=== PATIENT | male | born 1935 | race Caucasian/White ===

== ENCOUNTER 2019-09-27 06:40 | Emergency (ER) | payer MEDICARE, BC ==
[~2019-09-27] VITALS: Ht 167.6 cm; Wt 77.1 kg
[2019-09-27] MEDS ORDERED: LOSA25TA3 PO (06:52)
[2019-09-27] MEDS ORDERED: [UNRECOGNIZED DRUG - REMARK] (06:52)
--- NOTE | 2019-09-27 07:00 | NUR ---
Patient walked into ER c/o SBP of 178 at 0500 today. Patient called his PMD and was instructed to take 25mg of Cozaar. Alfonzoies SOB, N/V and CP.
[2019-09-27] MEDS ORDERED: ROSU40TA PO (07:01)
[2019-09-27] MEDS ORDERED: MULT-1201 PO (07:01)
[2019-09-27] MEDS ORDERED: CARV10CP PO (07:01)
[2019-09-27] MEDS ORDERED: CHOL200010 PO (07:01)
[2019-09-27] MEDS ORDERED: OMEG1200 PO (07:01)
[2019-09-27] MEDS ORDERED: CYAN10009 PO (07:01)
[2019-09-27] MEDS ORDERED: UBID100C13 PO (07:01)
[2019-09-27] MEDS ORDERED: ASPI81TA31 PO (07:01)
[2019-09-27] MEDS ORDERED: EZET10TA15 PO (07:01)
[2019-09-27] MEDS ORDERED: GLUC1CAP PO (07:01)
--- NOTE | 2019-09-27 07:07 | NUR ---
Dr Andrade into eval patient.
[2019-09-27 07:18] VITALS: BP 137/81
== END 2019-09-27 07:19 | disposition home or self-care (01) ==
LOC: ER 06:40
DX: I10 Essential (primary) hypertension (principal); Z79.899 Other long term (current) drug therapy; Z79.82 Long term (current) use of aspirin
CPT/HCPCS: A4663